=== PATIENT | male | born 1955 | race Hispanic/Latino ===

== ENCOUNTER 2017-12-24 11:58 | Emergency (ER) | payer SELFPAY ==
[2017-12-24] MEDS ORDERED: Ketorolac Tromethamine 30 MG/ML VIAL ONE (13:18)
[2017-12-24] MEDS ORDERED: Dexamethasone 4 mg/ml Vial ONE (13:18)
--- NOTE | 2017-12-24 14:35 | RAD ---
3 VIEWS LUMBAR SPINE: Date: 12/24/17 HISTORY: Right-sided back pain radiating to leg. FINDINGS: AP, lateral, and coned-down views of lumbar spine obtained. Images demonstrate five non-rib bearing lumbar vertebra. Anterior osteophytes seen in the L2, L3, L4, and L5 levels. No evidence of fractures or acute bony lesions seen. IMPRESSION: Multilevel lumbar degenerative changes. No evidence of acute lumbar spine fractures or bony lesions s een. POS: [facility]
[2017-12-24 15:01] LABS: Bilirubin Negative (Negative); Blood, Urine Negative (Negative); Clarity CLOUDY (Clear); Glucose, Urine (Dipstick) Negative (Negative); Leukocyte Negative (Negative); Nitrite Negative (Negative); Protein, Urine (Dipstick) Trace mg/dL (Neg-Trace); Specific Gravity, Urine 1.026 (1.002-1.036); pH, Urine 7.5 (5.0-9.0)
== END 2017-12-24 15:22 | disposition home or self-care (01) ==
LOC: ERS 11:58
DX: M54.41 Lumbago with sciatica, right side (principal)
CPT/HCPCS: 72100; 81003; 96372; J1100; J1885